=== PATIENT | male | born 1990 | race Caucasian/White ===

== ENCOUNTER 2021-07-19 13:03 | Outpatient (CLI) | payer BC ==
[2021-07-19 14:32] LABS: Hemoglobin 14.9 g/dL (13.5-17.5); Mean Corpuscular HGB CONC 33.6 g/dL (32.0-36.0); Mean Corpuscular Hemoglobin 30.1 pg (27.0-33.0); Mean Corpuscular Volume 89.5 fl (81.2-95.1); Mean Platelet Volume 10.4 fl (7.4-10.4); Platelet Count 205 10x3/uL (150-450); RBC Distribution Width 12.3 % (11.5-14.5); Red Blood Cell (RBC) Count 4.95 10x6/uL (4.32-5.72); White Blood Cell (WBC) Count 6.5 10x3/uL (3.5-10.5)
[2021-07-19 14:41] LABS: Anion Gap 13 mmol/L (10-20); BUN (Urea Nitrogen) 15 mg/dL (8.9-20.6); Calc. Creatinine Clearance 0 mL/min (70-130); Calcium 9.6 mg/dL (7.8-10.44); Carbon Dioxide 27 mmol/L (22-29); Chloride 104 mmol/L (98-107); Glucose 83 mg/dL (70-105); Potassium 4.5 mmol/L (3.5-5.1); Sodium 139 mmol/L (136-145)
[2021-07-20 17:56] LABS: SARS-CoV-2 PCR by NAA Not Detected (NotDetected)
== END 2021-07-19 13:04 | disposition home or self-care (01) ==
LOC: LABBT 13:03
PROVIDERS: ATTEND Urology
DX: Z01.812 Encounter for preprocedural laboratory examination (principal); C64.2 Malignant neoplasm of left kidney, except renal pelvis; Z20.822 Contact with and (suspected) exposure to COVID-19
CPT/HCPCS: 80048; 85027; 86850; 86900; 86901; U0003; U0005

== ENCOUNTER 2021-07-19 14:00 | Inpatient (IN) | payer BC ==
[2021-07-19 14:32] LABS: Hemoglobin 14.9 g/dL (13.5-17.5); Mean Corpuscular HGB CONC 33.6 g/dL (32.0-36.0); Mean Corpuscular Hemoglobin 30.1 pg (27.0-33.0); Mean Corpuscular Volume 89.5 fl (81.2-95.1); Mean Platelet Volume 10.4 fl (7.4-10.4); Platelet Count 205 10x3/uL (150-450); RBC Distribution Width 12.3 % (11.5-14.5); Red Blood Cell (RBC) Count 4.95 10x6/uL (4.32-5.72); White Blood Cell (WBC) Count 6.5 10x3/uL (3.5-10.5)
[2021-07-19 14:41] LABS: Anion Gap 13 mmol/L (10-20); BUN (Urea Nitrogen) 15 mg/dL (8.9-20.6); Calc. Creatinine Clearance 0 mL/min (70-130); Calcium 9.6 mg/dL (7.8-10.44); Carbon Dioxide 27 mmol/L (22-29); Chloride 104 mmol/L (98-107); Glucose 83 mg/dL (70-105); Potassium 4.5 mmol/L (3.5-5.1); Sodium 139 mmol/L (136-145)
[2021-07-20 17:56] LABS: SARS-CoV-2 PCR by NAA Not Detected (NotDetected)
[2021-07-22] MEDS ORDERED: Xylocaine 1% w/ Epi 1:100K 10 ML VIAL ONE (07:34)
[2021-07-22] MEDS ORDERED: Bupivacaine 0.25% HCL 30 ML VIAL ONE (07:34)
[2021-07-22] MEDS ORDERED: ceFAZolin 2 GM/DEX 5% 100 ML BAG ONE (08:21)
[2021-07-22] MEDS ORDERED: Midazolam HCl 2 mg/2 ml Vial ONE ×2 (08:21→08:24)
[2021-07-22] MEDS ORDERED: Fentanyl 250 MCG/5 ML VIAL ONE ×2 (08:24→11:05)
[2021-07-22] MEDS ORDERED: GLYCOPYRROLATE/PF 0.2 MG/ML VIAL ONE (08:44)
[2021-07-22] MEDS ORDERED: Lidocaine 1% PF 5 ML VIAL ONE (08:44)
[2021-07-22] MEDS ORDERED: Ondansetron PF 4 MG/2 ML Vial ONE (08:44)
[2021-07-22] MEDS ORDERED: Vecuronium 10 MG VIAL ONE (08:44)
[2021-07-22] MEDS ORDERED: Dexamethasone 20 MG/5 ML VIAL ONE (08:44)
[2021-07-22] MEDS ORDERED: PROPOFOL 200 MG/20 ML VIAL ONE (08:44)
[2021-07-22] MEDS ORDERED: Albumin 5% 500 ML ONE (10:21)
[2021-07-22] MEDS ORDERED: diphenhydrAMINE 50 MG/ML VIAL IVP PRN (10:53)
[2021-07-22] MEDS ORDERED: Ondansetron PF 4 MG/2 ML Vial IVP PRN (10:53)
[2021-07-22] MEDS ORDERED: HYDROcodone/Acetaminophen 5/325 mg Tablet PO PRN ×3 (10:53→17:33)
[2021-07-22] MEDS ORDERED: Meperidine HCl/PF 25 MG/ML VIAL ONE (11:05)
[2021-07-22] MEDS ORDERED: HYDROmorphone 2 MG/ML VIAL SLOW IVP PRN (11:10)
[2021-07-22] MEDS ORDERED: Meperidine HCl/PF 25 MG/ML VIAL SLOW IVP PRN (11:10)
[2021-07-22] MEDS ORDERED: Ondansetron HCl/PF 4 MG/2 ML Vial IVP PRN (11:10)
[2021-07-22] MEDS ORDERED: Promethazine HCl 25 MG/ML VIAL IVPB PRN (11:10)
[2021-07-22] MEDS ORDERED: Promethazine HCl 25 MG/ML VIAL IM PRN (11:10)
[2021-07-22] MEDS ORDERED: HYDROmorphone 0.5 MG/0.5 ML SYRINGE ONE (11:36)
[2021-07-22] MEDS: D5 1/2 NS w/20 mEq KCL 1,000 ML IV SCH ×2 (12:45→20:26)
[2021-07-22] MEDS: Ketorolac Tromethamine 30 MG/ML VIAL IVP SCH ×3 (13:23→23:24)
[2021-07-22] MEDS: Morphine 4 MG/ML VIAL SLOW IVP PRN ×2 (13:24→16:32)
[2021-07-22] MEDS: Promethazine HCl 12.5 MG in Sodium Chloride 0.9% 50 ML IVPB PRN (20:26)
[2021-07-23] MEDS: Promethazine HCl 12.5 MG in Sodium Chloride 0.9% 50 ML IVPB PRN (01:53)
[2021-07-23] MEDS ORDERED: Sodium Chloride 0.9% 500 ML IV SCH (05:15)
[2021-07-23 05:20] LABS: Anion Gap 16 mmol/L (10-20); BUN (Urea Nitrogen) 23 mg/dL (8.9-20.6); Calc. Creatinine Clearance 68 mL/min (70-130); Calcium 8.1 mg/dL (7.8-10.44); Carbon Dioxide 20 mmol/L (22-29); Chloride 104 mmol/L (98-107); Glucose 159 mg/dL (70-105); Potassium 6.2 mmol/L (3.5-5.1); Sodium 134 mmol/L (136-145)
[2021-07-23] MEDS: Ketorolac Tromethamine 30 MG/ML VIAL IVP SCH ×4 (05:39→23:42)
[2021-07-23 06:22] LABS: Band 4 % (5-11); Hemoglobin 7.8 g/dL (14.0-18.0); Lymphocytes 7 % (21-51); MDiff Complete? YES; Mean Corpuscular HGB CONC 34.3 g/dL (32.0-36.0); Mean Corpuscular Hemoglobin 31.6 pg (27.0-31.0); Mean Corpuscular Volume 92.3 fL (78.0-98.0); Mean Platelet Volume 8.9 fL (7.4-10.4); Monocytes 8 % (0-10); Neutrophil 81 % (42-75); Platelet Count 155 thou/uL (130-400); Platelet Morphology Comment Appears Adequate; RBC Distribution Width 11.5 % (11.5-14.5); RBC Morphology Normal; Red Blood Cell (RBC) Count 2.48 mill/uL (4.70-6.10)
[2021-07-23 07:03] LABS: Hemoglobin 7.7 g/dL (14.0-18.0)
[2021-07-23] MEDS ORDERED: Iopamidol 370 76% 100 ML VIAL ONE (09:43)
[2021-07-23] MEDS ORDERED: HYDROmorphone 0.5 MG/0.5 ML SYRINGE ONE (10:05)
[2021-07-23] MEDS ORDERED: Fentanyl 250 MCG/5 ML VIAL ONE ×2 (10:05→10:07)
[2021-07-23] MEDS ORDERED: Promethazine HCl 25 MG/ML VIAL ONE (10:06)
[2021-07-23] MEDS ORDERED: Ondansetron PF 4 MG/2 ML Vial ONE ×2 (10:07→11:08)
[2021-07-23] MEDS ORDERED: ceFAZolin 2 GM/DEX 5% 100 ML BAG ONE (10:30)
[2021-07-23] MEDS ORDERED: Dexamethasone 20 MG/5 ML VIAL ONE (11:08)
[2021-07-23] MEDS ORDERED: PROPOFOL 200 MG/20 ML VIAL ONE (11:08)
[2021-07-23] MEDS ORDERED: GLYCOPYRROLATE/PF 0.2 MG/ML VIAL ONE (11:08)
[2021-07-23] MEDS ORDERED: Rocuronium Bromide 10 MG/ML (10ML VIAL) ONE (11:08)
[2021-07-23] MEDS ORDERED: Lidocaine 1% PF 5 ML VIAL ONE (11:08)
[2021-07-23] MEDS ORDERED: PHENYLEPHRINE-NS 100 MCG/ML 10 ML SYRINGE ONE (11:08)
[2021-07-23] MEDS ORDERED: Bupivacaine PF 0.5% 30 ML VIAL ONE (11:27)
[2021-07-23] MEDS ORDERED: Albumin 5% 250 ML ONE (11:50)
[2021-07-23] MEDS ORDERED: Ondansetron PF 4 MG/2 ML Vial IVP PRN (12:47)
[2021-07-23] MEDS ORDERED: Zolpidem Tartrate 5 MG TAB PO PRN (12:47)
[2021-07-23] MEDS ORDERED: diphenhydrAMINE 50 MG/ML VIAL IM PRN (12:47)
[2021-07-23] MEDS ORDERED: Promethazine HCl 25 MG/ML VIAL IM PRN (12:47)
[2021-07-23] MEDS ORDERED: Naloxone HCl 0.4 mg/ml Vial IV PRN (12:47)
[2021-07-23] MEDS ORDERED: diphenhydrAMINE 25 MG CAP PO PRN (12:47)
[2021-07-23] MEDS ORDERED: Communication Order-Pharmacy FS SCH (13:00)
[2021-07-23 14:17] LABS: #Lymphocytes 0.9 thou/uL (1.20-3.40); #Monocytes 0.7 thou/uL (0.11-0.59); #Neutrophils 12.5 thou/uL (1.40-6.50); %Basophils 0.1 % (0.0-1.0); %Eosinophils 0.1 % (0.0-10.0); %Lymphocytes 6.1 % (21.0-51.0); %Monocytes 5.1 % (0.0-10.0); %Neutrophils 88.6 % (42.0-75.0); Hemoglobin 10.8 g/dL (14.0-18.0); Mean Corpuscular HGB CONC 34.5 g/dL (32.0-36.0); Mean Corpuscular Volume 89.9 fL (78.0-98.0); Mean Platelet Volume 8.2 fL (7.4-10.4); Platelet Count 89 thou/uL (130-400); RBC Distribution Width 13.7 % (11.5-14.5); Red Blood Cell (RBC) Count 3.48 mill/uL (4.70-6.10); White Blood Cell (WBC) Count 14.1 thou/uL (4.8-10.8)
[2021-07-23 14:35] LABS: Anion Gap 13 mmol/L (10-20); BUN (Urea Nitrogen) 23 mg/dL (8.9-20.6); Calc. Creatinine Clearance 74 mL/min (70-130); Carbon Dioxide 22 mmol/L (22-29); Chloride 106 mmol/L (98-107); Glucose 105 mg/dL (70-105); Potassium 4.6 mmol/L (3.5-5.1); Sodium 136 mmol/L (136-145)
[2021-07-23] MEDS: diphenhydrAMINE 50 MG/ML VIAL IVP PRN ×2 (14:53→23:41)
[2021-07-24 05:25] LABS: Hemoglobin 9.5 g/dL (14.0-18.0); Mean Corpuscular HGB CONC 32.9 g/dL (32.0-36.0); Mean Corpuscular Hemoglobin 29.6 pg (27.0-31.0); Mean Platelet Volume 8.8 fL (7.4-10.4); Platelet Count 91 thou/uL (130-400); RBC Distribution Width 14.5 % (11.5-14.5); Red Blood Cell (RBC) Count 3.21 mill/uL (4.70-6.10); White Blood Cell (WBC) Count 14.7 thou/uL (4.8-10.8)
[2021-07-24] MEDS: Ketorolac Tromethamine 30 MG/ML VIAL IVP SCH ×4 (05:27→23:29)
[2021-07-24 05:39] LABS: Anion Gap 9 mmol/L (10-20); BUN (Urea Nitrogen) 20 mg/dL (8.9-20.6); Calc. Creatinine Clearance 89 mL/min (70-130); Calcium 8.6 mg/dL (7.8-10.44); Carbon Dioxide 29 mmol/L (22-29); Chloride 104 mmol/L (98-107); Glucose 103 mg/dL (70-105); Potassium 4.8 mmol/L (3.5-5.1); Sodium 137 mmol/L (136-145)
[2021-07-24] MEDS: diphenhydrAMINE 50 MG/ML VIAL IVP PRN ×3 (10:40→21:54)
[2021-07-24] MEDS: fentaNYL Citrate/PF 2,000 MCG in Sodium Chloride 0.9% 60 ML IV PRN (12:33)
[2021-07-24 14:52] LABS: Hemoglobin 8.8 g/dL (14.0-18.0)
[2021-07-25] MEDS: fentaNYL Citrate/PF 2,000 MCG in Sodium Chloride 0.9% 60 ML IV PRN (03:40)
[2021-07-25] MEDS: diphenhydrAMINE 50 MG/ML VIAL IVP PRN (03:53)
[2021-07-25 05:39] LABS: #Eosinphils 0.1 thou/uL (0.0-0.7); #Lymphocytes 1.9 thou/uL (1.20-3.40); #Monocytes 0.5 thou/uL (0.11-0.59); #Neutrophils 5.6 thou/uL (1.40-6.50); %Basophils 0.2 % (0.0-1.0); %Eosinophils 1.6 % (0.0-10.0); %Lymphocytes 23.3 % (21.0-51.0); %Monocytes 6.1 % (0.0-10.0); %Neutrophils 68.9 % (42.0-75.0); Hemoglobin 8.5 g/dL (14.0-18.0); Mean Corpuscular HGB CONC 34.3 g/dL (32.0-36.0); Mean Corpuscular Hemoglobin 31.5 pg (27.0-31.0); Mean Corpuscular Volume 91.8 fL (78.0-98.0); Mean Platelet Volume 7.8 fL (7.4-10.4); Platelet Count 93 thou/uL (130-400); White Blood Cell (WBC) Count 8.1 thou/uL (4.8-10.8)
[2021-07-25] MEDS: Ketorolac Tromethamine 30 MG/ML VIAL IVP SCH ×4 (05:39→23:44)
[2021-07-25] MEDS ORDERED: Furosemide 20 MG/2 ML VIAL SLOW IVP SCH (07:00)
[2021-07-25] MEDS ORDERED: HYDROcodone/Acetaminophen 10/325 mg Tablet PO PRN ×2 (09:02→09:03)
[2021-07-25] MEDS ORDERED: traMADol HCl 50 MG TAB PO PRN ×2 (09:03)
[2021-07-25] MEDS ORDERED: Acetaminophen 500 MG TAB PO PRN (10:02)
[2021-07-25] MEDS ORDERED: Promethazine HCl 12.5 MG in Sodium Chloride 0.9% 50 ML IVPB PRN (12:49)
[2021-07-25] MEDS ORDERED: Bisacodyl 5 MG TAB PO PRN (15:24)
[2021-07-25] MEDS ORDERED: Bisacodyl 10 MG SUPP PR PRN (15:24)
[2021-07-25 16:56] LABS: #Eosinphils 0.1 thou/uL (0.0-0.7); #Lymphocytes 1.5 thou/uL (1.20-3.40); #Monocytes 0.5 thou/uL (0.11-0.59); #Neutrophils 5.8 thou/uL (1.40-6.50); %Basophils 0.5 % (0.0-1.0); %Lymphocytes 18.5 % (21.0-51.0); %Monocytes 6.4 % (0.0-10.0); %Neutrophils 73.7 % (42.0-75.0); Hemoglobin 10.2 g/dL (14.0-18.0); Mean Corpuscular HGB CONC 33.3 g/dL (32.0-36.0); Mean Corpuscular Hemoglobin 30.6 pg (27.0-31.0); Mean Platelet Volume 7.7 fL (7.4-10.4); Platelet Count 120 thou/uL (130-400); RBC Distribution Width 13.9 % (11.5-14.5); Red Blood Cell (RBC) Count 3.35 mill/uL (4.70-6.10); White Blood Cell (WBC) Count 7.9 thou/uL (4.8-10.8)
[2021-07-25 17:22] LABS: Anion Gap 14 mmol/L (10-20); BUN (Urea Nitrogen) 16 mg/dL (8.9-20.6); Calc. Creatinine Clearance 0 mL/min (70-130); Calcium 9.2 mg/dL (7.8-10.44); Carbon Dioxide 30 mmol/L (22-29); Chloride 99 mmol/L (98-107); Glucose 88 mg/dL (70-105); Potassium 3.5 mmol/L (3.5-5.1); Sodium 139 mmol/L (136-145)
[2021-07-25] MEDS: Docusate Calcium (SURFAK) 240 MG CAP PO SCH (22:03)
[2021-07-25] MEDS: Metoclopramide HCl 10 MG/2 ML VIAL IVP SCH ×2 (22:03→22:13)
[2021-07-26] MEDS: Ketorolac Tromethamine 30 MG/ML VIAL IVP SCH ×2 (06:31→12:27)
[2021-07-26 07:43] LABS: Anion Gap 10 mmol/L (10-20); BUN (Urea Nitrogen) 22 mg/dL (8.9-20.6); Calc. Creatinine Clearance 0 mL/min (70-130); Calcium 9.3 mg/dL (7.8-10.44); Carbon Dioxide 30 mmol/L (22-29); Chloride 101 mmol/L (98-107); Glucose 87 mg/dL (70-105); Magnesium 1.9 mg/dL (1.6-2.6); Sodium 137 mmol/L (136-145)
[2021-07-26] MEDS: Docusate Calcium (SURFAK) 240 MG CAP PO SCH (08:47)
[2021-07-26] MEDS: Metoclopramide HCl 10 MG/2 ML VIAL IVP SCH (08:47)
[2021-07-26 11:37] VITALS: BP 105/66; TEMP 98.1
== END 2021-07-26 13:15 | disposition home or self-care (01) | DRG 657 ==
LOC: SURG A 07-22 06:32 → SJJU 07-22 12:40
PROVIDERS: ADMIT Urology; ATTEND Urology
PROC: 0TB14ZZ Excision of Left Kidney, Percutaneous Endoscopic Approach (ICD-10-PCS; principal; 2021-07-22)
PROC: 0TQ Urinary System, Repair (ICD-10-PCS; 2021-07-23)
PROC: 30233N1 Transfusion of Nonautologous Red Blood Cells into Peripheral Vein, Percutaneous Approach (ICD-10-PCS; 2021-07-23)
DX: C64.2 Malignant neoplasm of left kidney, except renal pelvis (principal); N99.821 Postprocedural hemorrhage of a genitourinary system organ or structure following other procedure; Z20.822 Contact with and (suspected) exposure to COVID-19; Y83.8 Other surgical procedures as the cause of abnormal reaction of the patient, or of later complication, without mention of misadventure at the time of the procedure; I95.9 Hypotension, unspecified; R00.0 Tachycardia, unspecified
CPT/HCPCS: 36415; 36430; 74177; 80048; 83735; 85025; 85027; 86850; 86900; 86901; 88305; 88307; 93005; 93010; C1713; J1100; J1170; J1200; J1885; J1940; J2175; J2250; J2270; J2405; J2550; J2704; J2765; J3010; J3480; J3490; J7030; P9016; P9045; Q9967; S0020; U0003; U0005

== ENCOUNTER 2021-07-30 15:24 | Emergency (ER) | payer BC ==
[~2021-07-30 15:24] MED LIST: Iopamidol-370 76% 500 ML 1 ML ONE
[2021-07-30 16:10] LABS: #Basophils 0.1 thou/uL (0.0-0.2); #Eosinphils 0.2 thou/uL (0.0-0.7); #Lymphocytes 1.6 thou/uL (1.20-3.40); #Monocytes 0.7 thou/uL (0.11-0.59); %Basophils 0.7 % (0.0-1.0); %Eosinophils 2.9 % (0.0-10.0); %Lymphocytes 20.9 % (21.0-51.0); %Monocytes 9.4 % (0.0-10.0); %Neutrophils 66.2 % (42.0-75.0); Hemoglobin 12.1 g/dL (14.0-18.0); Mean Corpuscular HGB CONC 34.2 g/dL (32.0-36.0); Mean Corpuscular Hemoglobin 32.1 pg (27.0-31.0); Mean Corpuscular Volume 93.7 fL (78.0-98.0); Platelet Count 277 thou/uL (130-400); Red Blood Cell (RBC) Count 3.76 mill/uL (4.70-6.10); White Blood Cell (WBC) Count 7.6 thou/uL (4.8-10.8)
[2021-07-30 16:32] LABS: ALT (SGPT) 25 U/L (8-55); AST (SGOT) 26 U/L (5-34); Albumin 4.3 g/dL (3.5-5.0); Alkaline Phosphatase 56 U/L (40-110); Anion Gap 14 mmol/L (10-20); BUN (Urea Nitrogen) 20 mg/dL (8.9-20.6); Bilirubin, Total 1.9 mg/dL (0.2-1.2); Calc. Creatinine Clearance 0 mL/min (70-130); Calcium 9.7 mg/dL (7.8-10.44); Carbon Dioxide 27 mmol/L (22-29); Chloride 100 mmol/L (98-107); Globulin 3.7 g/dL (2.4-3.5); Glucose 108 mg/dL (70-105); Lipase 14 U/L (8-78); Sodium 137 mmol/L (136-145)
[2021-07-30] MEDS ORDERED: Ondansetron PF 4 MG/2 ML Vial ONE ×2 (16:34→18:24)
[2021-07-30] MEDS ORDERED: Fentanyl 100 MCG/2 ML VIAL ONE (16:34)
[2021-07-30 18:49] LABS: Bilirubin Negative (Negative); Blood, Urine Negative (Negative); Clarity Clear (Clear); Glucose, Urine (Dipstick) Normal (Negative); Ketone, Urine Negative (Negative); Leukocyte Negative Leu/uL (Negative); Nitrite Negative (Negative); Protein, Urine (Dipstick) Negative (Neg-Trace); Specific Gravity, Urine 1.021 (1.002-1.036); Urobilinogen 3 mg/dL (Less than 2)
== END 2021-07-30 19:19 | disposition home or self-care (01) ==
LOC: ERS 15:24
DX: G89.18 Other acute postprocedural pain (principal); R10.9 Unspecified abdominal pain; E86.0 Dehydration; F17.220 Nicotine dependence, chewing tobacco, uncomplicated
CPT/HCPCS: 36415; 74177; 80053; 81003; 83690; 85025; 96374; 96375; 96376; J2405; J3010; Q9967

== ENCOUNTER 2021-10-10 14:19 | Outpatient (CLI) | payer BC | END 2021-10-10 14:20 | disposition home or self-care (01) | LOC: BICCT 14:19 | PROVIDERS: ATTEND Urology | DX: C64.2 Malignant neoplasm of left kidney, except renal pelvis (principal) | CPT/HCPCS: 74160 ==